=== PATIENT | male | born 1985 ===

== ENCOUNTER 2019-06-10 20:10 | Emergency (ER) | payer SELFPAY ==
--- NOTE | 2019-06-10 21:49 | RAD ---
EXAM: Left clavicle: 2 views INDICATIONS: Trauma COMPARISON: None. FINDINGS: No fracture. AC joint normally aligned. IMPRESSION: No acute finding
--- NOTE | 2019-06-10 21:50 | RAD ---
EXAM: Left shoulder: 3 views INDICATIONS: Trauma COMPARISON: None. FINDINGS: No fracture or dislocation. No osseous abnormality. IMPRESSION: No acute finding
[2019-06-10] MEDS ORDERED: Ketorolac Tromethamine 30 MG/ML VIAL ONE (22:36)
== END 2019-06-10 22:44 | disposition home or self-care (01) ==
LOC: ERS 20:10
DX: M25.512 Pain in left shoulder (principal); V89.2XXA Person injured in unspecified motor-vehicle accident, traffic, initial encounter
CPT/HCPCS: 96372; J1885